=== PATIENT | female | born 1990 | race Caucasian/White ===

== ENCOUNTER 2017-01-17 16:58 | Emergency (ER) | payer OTHER ==
[2017-01-17 18:20] LABS: HEMOGLOBIN 13.9 gm/dl (12.3-15.3); RED BLOOD COUNT 4.86 M/UL (4.00-5.10); WHITE BLOOD COUNT 11.4 K/UL (4.5-11.0)
[2017-01-17 18:37] LABS: BUN/CREATININE RATIO 27 (0-10)
== END 2017-01-17 20:24 | disposition home or self-care (01) ==
LOC: ER1 16:58
PROVIDERS: Emergency Medicine
DX: R10.9 Unspecified abdominal pain (principal); R11.2 Nausea with vomiting, unspecified; Z88.5 Allergy status to narcotic agent
CPT/HCPCS: 36415; 80053; 81001; 83690; 84703; 85025; 96361; 96365; 96375; 99284; J1885; J2405; J7050; Q9962